=== PATIENT | female | born 1995 | race Caucasian/White ===

== ENCOUNTER 2024-03-03 19:52 | Emergency (ER) | payer MEDICAID, SELFPAY ==
[2024-03-03 19:57] VITALS: BP 118/62; PULSE 79; RESP 20; TEMP 36.7; O2SAT 98; BMI 42.0
--- NOTE | 2024-03-03 20:00 | ED_ITS ---
Discharge Plan Disposition Patient Disposition: Home, Self-Care Condition: Good Prescriptions Prescriptions: New sulfamethoxazole-trimethoprim [Bactrim DS] 800-160 mg tablet 1 tab PO DAILY 5 Days Qty: 5 0RF tamsulosin [Flomax] 0.4 mg capsule 0.4 mg PO DAILY Qty: 7 0RF Referrals Follow up/Referrals: Min Ramirez MD [Staff Physician] - See instructions Activity Restrictions/Add. Instructions Additional Instructions/Restrictions: Please strain all your urine and retain the stone if you are having to catch it. I have called in a prescription for antibiotic. Have also referred you to urology. Return to the emergency department for any worsening signs of symptoms including fever or pain inability to urinate etc. Clinical Impressions Clinical Impression: Ureterolithiasis Instructions Patient Instructions: DI for Acute Abdominal Pain Discharge ED Provider: Jan Solano General Adult HPI <CHAPIN Augustin - Last Filed: 03/03/24 22:14> General Chief complaint: Abdominal Pain Stated complaint: body aches,chills,urinating blood Time Seen by Provider: 03/03/24 20:00 History of Present Illness HPI narrative: Patient presents for evaluation of abdominal pain, hematuria. Patient reports that she has been having bodyaches malaise and abdominal pain along with hematuria more than 24 hours. She has never had anything like this before but has had a history of kidney stones. She denies chest pain shortness of breath fever chills hemoptysis hematochezia melena nausea vomit diarrhea Related Data Previous Rx's Medication Instructions Recorded sulfamethoxazole 800 1 tab PO DAILY 5 days #5 tabs 03/03/24 mg-trimethoprim 160 mg tablet (Bactrim DS) tamsulosin 0.4 mg capsule (Flomax) 0.4 mg PO DAILY #7 caps 03/03/24 Allergies Allergy/AdvReac Type Severity Reaction Status Date / Time No Known Allergies Allergy Verified 03/03/24 20:14 [facility] <CHAPIN Augustin - Last Filed: 03/03/24 22:14> [facility] Disclaimer: The information contained in this section may have been updated after the patient was seen, as this information can be updated by other users. Social History (Updated 03/03/24 @ 22:14 by CHAPIN Augustin) Smoking Status: Current every day smoker alcohol intake: current alcohol intake frequency: a few times a month current occupational status: employed Travel in the last 8 weeks: None <CHAPIN Augustin - Last Filed: 03/03/24 22:14> ROS Obtained: Yes Systems reviewed as appropriate & no additional complaints except as documented Physical Exam <CHAPIN Augustin - Last Filed: 03/03/24 22:14> General General appearance: alert and in no apparent distress Respiratory Respiratory exam: Present normal lung sounds bilaterally; Absent respiratory distress Cardiovascular Cardiovascular exam: Present regular rate and normal rhythm Abdominal Exam Abdominal exam: Present soft, tenderness (Tender to palpation of bilateral lower quadrants and suprapubic area) and normal bowel sounds Neurological Exam Neurological exam: Present alert and oriented X3 Medical Decision Making <CHAPIN Augustin - Last Filed: 03/03/24 22:14> Medical Records Medical records reviewed: Yes I reviewed the patient's medical records. Fco Inquiry Pt receiving controlled substance: No Vital Signs: 03/03/24 19:57 03/03/24 22:13 03/03/24 22:17 Temperature 98.1 F 98.1 F Temperature Source Oral Oral Pulse Rate 68 67 Pulse Rate [Right Radial] 79 Respiratory Rate 20 20 Blood Pressure 116/77 118/73 Blood Pressure [Right Arm] 118/62 Blood Pressure Mean 88 Blood Pressure Mean [Right Arm] 80 02 Sat by Pulse Oximetry 98 97 Oxygen Delivery Method Room Air Room Air Lab Data Lab results reviewed: Yes I reviewed the patient's lab results. Lab Results 03/03/24 20:05: Urine Color [place], Urine Appearance Slightly cloudy, Urine pH 6.5, Ur Specific [place] 1.020, Urine Protein Negative, Urine Glucose (UA) Negative, Urine Ketones Negative, Urine Blood 3+, Urine Nitrate Negative, Urine Bilirubin Negative, Urine Urobilinogen 0.2, Ur Leukocyte Esterase Negative, Urine RBC 20-50, Urine WBC None, Ur Squamous Epith Cells 3-5, Urine Bacteria None 03/03/24 20:20: WBC 6.3, RBC 4.49, Hgb 13.2, Hct 40.1, MCV 89.3, MCH 29.4, MCHC 32.9, RDW 13.7, Plt Count 204, MPV 9.0, Neut % (Auto) 64.5, Lymph % (Auto) 21.2, [place] % (Auto) 10.4 H, Eos % (Auto) 2.3, Baso % (Auto) 1.6, Neut # (Auto) 4.1, Lymph # (Auto) 1.3, [place] # (Auto) 0.7, Eos # (Auto) 0.2, Baso # (Auto) 0.1, Sodium 136, Potassium 3.8, Chloride 107, Carbon Dioxide 25, Anion Gap 7.8, BUN 11, Creatinine 0.70, Estimated Creat Clear 95, Estimated GFR 100, Est GFR ( Amer) 121, Glucose 88, Lactate 0.5 L, Calcium 9.4, Magnesium 1.7, Total Bilirubin 0.3, AST 30, ALT 31, Alkaline Phosphatase 85, Total Protein 6.6, Albumin 3.9, Globulin 2.7, Albumin/Globulin Ratio 1.4, Serum HCG, Qual Negative 03/03/24 20:20 03/03/24 20:20 Orders (Tests/Meds): ED MEDICATIONS Discontinued Medications Generic Name Dose Route Start Last Admin Trade Name Adilson PRN Reason Stop Dose Admin Acetaminophen 1,000 mg 03/03/24 20:13 03/03/24 20:37 Acetaminophen 1,000mg/100ml Vial IV 03/03/24 20:14 1,000 mg ONCE ONE Administration Dexamethasone Sodium Phosphate 10 mg 03/03/24 20:13 03/03/24 20:27 Dexamethasone 4mg/Ml 5ml Mdv IV 03/03/24 20:14 Not Given ONCE ONE Hydromorphone HCl 0.5 mg 03/03/24 22:03 03/03/24 22:09 Hydromorphone 2mg/Ml Syringe IV 03/03/24 22:04 Not Given ONCE ONE Lactated Ringer's 1,000 mls @ 999 mls/hr 03/03/24 20:18 03/03/24 20:37 Lactated Ringer's 1000 Ml Bag IV 03/03/24 21:18 999 mls/hr .Q1H1M ONE Administration Iopamidol 75 ml 03/03/24 21:17 03/03/24 21:18 Iopamidol-370 (76%);100ml Bottle IV 03/03/24 21:18 75 ml ONCE ONE Administration Ketorolac Tromethamine 15 mg 03/03/24 20:18 03/03/24 20:37 Ketorolac 30mg/Ml Vial IV 03/03/24 20:19 15 mg ONCE ONE Administration Promethazine HCl 25 mg 03/03/24 22:03 03/03/24 22:09 Promethazine Hcl 25mg/Ml 1ml Vial IV 03/03/24 22:04 Not Given ONCE ONE Sodium Chloride 10 ml 03/03/24 21:17 03/03/24 21:18 Sodium Chloride 0.9% 10ml Syr (Rad Only) IV 04/02/24 21:16 10 ml NEEDED PRN Administration Maintain IV Site Sodium Chloride 25 ml 03/03/24 22:03 03/03/24 22:09 Sodium Chloride 0.9% 25ml Bag IV 03/03/24 22:04 Not Given ONCE ONE ORDERS Category Date Time Status CT abdomen pelvis w con Stat Cat Scan 03/03/24 20:18 Completed CBC w/Auto Diff [Complete Blood Count Auto Diff] Stat Lab 03/03/24 20:20 Completed CMP [Comprehensive Metabolic Panel] Stat Lab 03/03/24 20:20 Completed HCG Qualitative, Serum Stat Lab 03/03/24 20:20 Completed Lactic Acid Stat Lab 03/03/24 20:20 Completed Magnesium Stat Lab 03/03/24 20:20 Completed UA [Urinalysis and Microscopic] Stat Lab 03/03/24 20:05 Completed Medical Decision Narrative: In summary patient is a 28-year-old female who presents to the emergency department for evaluation of hematuria and abdominal pain. Patient is hemodynamically stable upon arrival, febrile. Physical exam is remarkable for bilateral lower quadrant tenderness and suprapubic tenderness with normal bowel sounds no rebound or guarding or rigidity. Negative flank tenderness to percussion bilaterally. Differential diagnosis includes acute cystitis versus complicated urinary tract infection versus kidney stone versus pyelonephritis. Initial workup will be conducted with hematologic labs CT scan of the abdomen pelvis urinalysis urine test. Initial interventions include crystalloid bolus Tylenol Toradol. Initial workup reviewed by me shows hematuria without infection. Upon repeat evaluation has only had moderate discomfort and renal colic. Given this patient is appropriate for discharge with referral to urology and a prescription for Bactrim. Patient return the emergency department for any worsening signs send including nausea vomiting fever chills inability urinate etc. <Jan Solano DO - Last Filed: 03/03/24 23:46> Vital Signs: 03/03/24 19:57 03/03/24 22:13 03/03/24 22:17 Temperature 98.1 F 98.1 F Temperature Source Oral Oral Pulse Rate 68 67 Pulse Rate [Right Radial] 79 Respiratory Rate 20 20 Blood Pressure 116/77 118/73 Blood Pressure [Right Arm] 118/62 Blood Pressure Mean 88 Blood Pressure Mean [Right Arm] 80 02 Sat by Pulse Oximetry 98 97 Oxygen Delivery Method Room Air Room Air Lab Data Lab Results 03/03/24 20:05: Urine Color [place], Urine Appearance Slightly cloudy, Urine pH 6.5, Ur Specific [place] 1.020, Urine Protein Negative, Urine Glucose (UA) Negative, Urine Ketones Negative, Urine Blood 3+, Urine Nitrate Negative, Urine Bilirubin Negative, Urine Urobilinogen 0.2, Ur Leukocyte Esterase Negative, Urine RBC 20-50, Urine WBC None, Ur Squamous Epith Cells 3-5, Urine Bacteria None 03/03/24 20:20: WBC 6.3, RBC 4.49, Hgb 13.2, Hct 40.1, MCV 89.3, MCH 29.4, MCHC 32.9, RDW 13.7, Plt Count 204, MPV 9.0, Neut % (Auto) 64.5, Lymph % (Auto) 21.2, [place] % (Auto) 10.4 H, Eos % (Auto) 2.3, Baso % (Auto) 1.6, Neut # (Auto) 4.1, Lymph # (Auto) 1.3, [place] # (Auto) 0.7, Eos # (Auto) 0.2, Baso # (Auto) 0.1, Sodium 136, Potassium 3.8, Chloride 107, Carbon Dioxide 25, Anion Gap 7.8, BUN 11, Creatinine 0.70, Estimated Creat Clear 95, Estimated GFR 100, Est GFR ( Amer) 121, Glucose 88, Lactate 0.5 L, Calcium 9.4, Magnesium 1.7, Total Bilirubin 0.3, AST 30, ALT 31, Alkaline Phosphatase 85, Total Protein 6.6, Albumin 3.9, Globulin 2.7, Albumin/Globulin Ratio 1.4, Serum HCG, Qual Negative Orders (Tests/Meds): ED MEDICATIONS Discontinued Medications Generic Name Dose Route Start Last Admin Trade Name Freq PRN Reason Stop Dose Admin Acetaminophen 1,000 mg 03/03/24 20:13 03/03/24 20:37 Acetaminophen 1,000mg/100ml Vial IV 03/03/24 20:14 1,000 mg ONCE ONE Administration Dexamethasone Sodium Phosphate 10 mg 03/03/24 20:13 03/03/24 20:27 Dexamethasone 4mg/Ml 5ml Mdv IV 03/03/24 20:14 Not Given ONCE ONE Hydromorphone HCl 0.5 mg 03/03/24 22:03 03/03/24 22:09 Hydromorphone 2mg/Ml Syringe IV 03/03/24 22:04 Not Given ONCE ONE Lactated Ringer's 1,000 mls @ 999 mls/hr 03/03/24 20:18 03/03/24 20:37 Lactated Ringer's 1000 Ml Bag IV 03/03/24 21:18 999 mls/hr .Q1H1M ONE Administration Iopamidol 75 ml 03/03/24 21:17 03/03/24 21:18 Iopamidol-370 (76%);100ml Bottle IV 03/03/24 21:18 75 ml ONCE ONE Administration Ketorolac Tromethamine 15 mg 03/03/24 20:18 03/03/24 20:37 Ketorolac 30mg/Ml Vial IV 03/03/24 20:19 15 mg ONCE ONE Administration Promethazine HCl 25 mg 03/03/24 22:03 03/03/24 22:09 Promethazine Hcl 25mg/Ml 1ml Vial IV 03/03/24 22:04 Not Given ONCE ONE Sodium Chloride 10 ml 03/03/24 21:17 03/03/24 21:18 Sodium Chloride 0.9% 10ml Syr (Rad Only) IV 04/02/24 21:16 10 ml NEEDED PRN Administration Maintain IV Site Sodium Chloride 25 ml 03/03/24 22:03 03/03/24 22:09 Sodium Chloride 0.9% 25ml Bag IV 03/03/24 22:04 Not Given ONCE ONE ORDERS Category Date Time Status CT abdomen pelvis w con Stat Cat Scan 03/03/24 20:18 Completed CBC w/Auto Diff [Complete Blood Count Auto Diff] Stat Lab 03/03/24 20:20 Completed CMP [Comprehensive Metabolic Panel] Stat Lab 03/03/24 20:20 Completed HCG Qualitative, Serum Stat Lab 03/03/24 20:20 Completed Lactic Acid Stat Lab 03/03/24 20:20 Completed Magnesium Stat Lab 03/03/24 20:20 Completed UA [Urinalysis and Microscopic] Stat Lab 03/03/24 20:05 Completed Medical Decision Narrative: In summary patient is a 28-year-old female who presents to the emergency department for evaluation of hematuria and abdominal pain. Patient is hemodynamically stable upon arrival, febrile. Physical exam is remarkable for bilateral lower quadrant tenderness and suprapubic tenderness with normal bowel sounds no rebound or guarding or rigidity. Negative flank tenderness to percussion bilaterally. Differential diagnosis includes acute cystitis versus complicated urinary tract infection versus kidney stone versus pyelonephritis. Initial workup will be conducted with hematologic labs CT scan of the abdomen pelvis urinalysis urine test. Initial interventions include crystalloid bolus Tylenol Toradol. Initial workup reviewed by me shows hematuria without infection. Upon repeat evaluation has only had moderate discomfort and renal colic. Given this patient is appropriate for discharge with referral to urology and a prescription for Bactrim. Patient return the emergency department for any worsening signs send including nausea vomiting fever chills inability urinate etc. I was consulted by the ALEXANDRA, and we discussed the complexity of the problems being addressed. I approved the treatment and management plan for this patient's care in the Emergency Department, thus performing a substantive portion of the medical decision making. Jan Solano, Critical Care <CHAPIN Augustin - Last Filed: 03/03/24 22:14> Critical Care Time Critical Care Time: No
--- NOTE | 2024-03-03 20:18 | CT_ITS ---
PROCEDURE INFORMATION: Exam: CT Abdomen And Pelvis With Contrast Exam date and time: 03/03/2024 9:12 PM Age: 28 years old Clinical indication: Abdominal pain; Additional info: Abdominal pain, hematuria TECHNIQUE: Imaging protocol: Computed tomography of the abdomen and pelvis with contrast. Radiation optimization: All CT scans at this facility use at least one of these dose optimization techniques: automated exposure control; mA and/or kV adjustment per patient size (includes targeted exams where dose is matched to clinical indication); or iterative reconstruction. Contrast material: ISOVUE; Contrast volume: 75 ml; Contrast route: IV; COMPARISON: No relevant prior studies available. FINDINGS: Liver: Normal. No mass. Gallbladder and bile ducts: Normal. No calcified stones. No ductal dilation. Pancreas: Normal. No ductal dilation. Spleen: Normal. No splenomegaly. Adrenal glands: Normal. No mass. Kidneys and ureters: On axial image 56, there is a 4.7 mm stone at the right ureteropelvic junction with slight fullness of the right renal collecting system. Single tiny calyceal stone in the lower right kidney. No other evidence of urolithiasis. Left kidney appears normal. Stomach and bowel: Unremarkable. No obstruction. No mucosal thickening. Appendix: No evidence of appendicitis. Intraperitoneal space: Unremarkable. No free air. No significant fluid collection. Vasculature: Unremarkable. No abdominal aortic aneurysm. Lymph nodes: Unremarkable. No enlarged lymph nodes. Urinary bladder: Unremarkable as visualized. Reproductive: Intrauterine device appears to be in good position. Bones/joints: Bilateral spondylolysis of L5. Mild diffuse disc bulge at L4-L5 and L5-S1. Osseous alignment is normal. No vertebral body compression or acute fracture. Soft tissues: Unremarkable. IMPRESSION: 4.7 mm right UPJ stone with minimal fullness of the right renal collecting system. Small right caliceal stone also noted.
[2024-03-03 20:19] LABS: Microscopic, Urine URINE MICROSCOPIC (MICROSCOPIC)
[2024-03-03 20:20] LABS: Appearance,Urine Slightly Cloudy (Clear); Bilirubin,Urine Negative (Negative); Blood, Urine 3+ (Negative); Color,Urine Orange (Yellow); Glucose,Urine (UA) Negative (Negative); Ketones,Urine Negative (Negative); Leukocyte Esterase,Urine Negative (Negative); Nitrate,Urine Negative (Negative); PH,Urine 6.5 (5.0-8.5); Protein,Urine Negative (Negative); Urobilinogen,Urine 0.2 EU/dl (0.2)
[2024-03-03 20:30] LABS: Basophils # 0.1 K/mm3 (0-0.2); Basophils % 1.6 % (0.1-2.0); Eosinophils # 0.2 K/mm3 (0.0-0.4); Eosinophils % 2.3 % (0.1-12.0); Hematocrit 40.1 % (37.0-47.0); Hemoglobin 13.2 g/dL (12.2-16.2); Lymphocytes # 1.3 K/mm3 (0.7-4.5); Lymphocytes % 21.2 % (10-50); Mean Corpuscular HGB Conc 32.9 g/dL (31.8-35.4); Mean Corpuscular Hemoglobin 29.4 pg (27.0-31.2); Mean Corpuscular Volume 89.3 fl (81-99); Monocytes # 0.7 K/mm3 (0.1-1.0); Monocytes % 10.4 % (1.7-9.3); Neutrophils # 4.1 K/mm3 (1.8-7.8); Neutrophils % 64.5 % (37.0-80.0); Platelet Count 204 K/mm3 (142-424); Red Blood Count 4.49 M/mm3 (4.20-5.40); Red Cell Distribution Width 13.7 % (11.5-17.5); White Blood Count 6.3 K/mm3 (4.8-10.8)
[2024-03-03 20:31] LABS: RBC,Urine 20-50 #/hpf (0-3)
[2024-03-03] MEDS: LACTATED RINGERS 1000ML 1,000 ML 999 ML IV (20:37)
[2024-03-03] MEDS: KETOROLAC 30MG/ML VIAL 15 MG IV (20:37)
[2024-03-03] MEDS: ACETAMINOPHEN 1,000MG/100ML VIAL 1000 MG IV (20:37)
[2024-03-03 20:38] LABS: Chloride 107 mmol/L (98-107); Potassium 3.8 mmoL/L (3.5-5.1); Sodium 136 mmol/L (136-145)
[2024-03-03 20:40] LABS: Alanine Aminotransferase 31 U/L (12-78); Alkaline Phosphatase 85 U/L (38-126); Anion Gap 7.8 mEq/L (5-15); Aspartate Amino Transferase 30 U/L (14-36); Bilirubin,Total 0.3 mg/dl (0.2-1.3); Blood Urea Nitrogen 11 mg/dl (7-17); Carbon Dioxide 25 mmol/L (22.0-30.0); Creatinine Clearance Estimated 95 mL/min (50-200); Estimated Glomerular Filt Rate 100 ml/min (>60); GFR (African American) 121 ML/MIN (>60); Lactic Acid 0.5 mmol/L (0.7-2.1)
[2024-03-03 20:41] LABS: Albumin Level 3.9 g/dl (3.5-5.0); Albumin/Globulin Ratio 1.4 (1.1-1.8); Calcium 9.4 mg/dl (8.4-10.2); Globulin 2.7 g/dL (1.3-3.2); Glucose 88 mg/dl (74-100); Magnesium 1.7 mg/dl (1.6-2.3); Total Protein,Serum 6.6 g/dl (6.3-8.2)
[2024-03-03 20:49] LABS: HCG Qualitative, Serum Negative (Negative)
--- NOTE | 2024-03-03 21:16 | PC.NURSE ---
patient back from xray, RN informed
[2024-03-03] MEDS: SODIUM CHLORIDE 0.9% 10ML SYR (RAD ONLY) 10 ML IV (21:18)
[2024-03-03] MEDS: IOPAMIDOL-370 (76%);100ML BOTTLE 75 ML IV (21:18)
--- NOTE | 2024-03-03 22:09 | PC.NURSE ---
Checked with patient, patient reports pain remains about the same, that she's had worse period cramps . Offered patient additional pain medication, patient denies stronger pain medication at this time.
[2024-03-03 22:13] VITALS: BP 116/77; PULSE 68; O2SAT 97
[2024-03-03 22:17] VITALS: BP 118/73; PULSE 67; RESP 20; TEMP 36.7; O2SAT 97
== END 2024-03-03 22:18 | disposition home or self-care (01) ==
PROVIDERS: Physician Assistant; Emergency Provider Emergency Medicine
DX: R10.9 Unspecified abdominal pain (principal); N20.1 Calculus of ureter; F17.210 Nicotine dependence, cigarettes, uncomplicated
CPT/HCPCS: 74177; 80053; 81001; 83605; 83735; 84703; 85025; 96361; 96374; 96375; 99285; J0131; Q9967